=== PATIENT | female | born 1950 | race Caucasian/White ===

== ENCOUNTER → 2016-06-29 | Outpatient (CLI) | payer MEDICARE, OTHER ==
[~2016-06-29] MED LIST: FURO40TA4 PO; GABA100C; GABA250S2 PO; LISI10TA2; MORP60CA18 PO; [UNRECOGNIZED DRUG - CODE]; [UNRECOGNIZED DRUG - CODE]; [UNRECOGNIZED DRUG - CODE]; [UNRECOGNIZED DRUG - CODE]
[2016-06-29 09:10] LABS: ADD SCAN DIFF NO
[2016-06-29 09:20] LABS: BASOPHIL # 0.1 10^3/ul (0.0-0.1); BASOPHILS % 0.9 % (0.0-2.0); EOSINOPHILS # 0.3 10^3/ul (0.0-0.5); EOSINOPHILS % 4.2 % (0.0-7.0); HEMATOCRIT 46.2 % (37.0-47.0); HEMOGLOBIN 14.9 g/dl (12.0-16.0); LYMPHOCYTES # 2.3 10^3/ul (0.8-2.9); LYMPHOCYTES % 34.5 % (15.0-51.0); MEAN CORPUSCULAR HEMOGLOBIN 29.6 pg (29.0-33.0); MEAN CORPUSCULAR HGB CONC 32.3 g/dl (32.0-37.0); MEAN CORPUSCULAR VOLUME 91.7 fl (82.0-101.0); MEAN PLATELET VOLUME 10.6 fl (7.4-10.4); MONOCYTE # 0.5 10^3/ul (0.3-0.9); MONOCYTES % 7.5 % (0.0-11.0); NEUTROPHIL # 3.5 10^3/ul (1.6-7.5); NEUTROPHILS % 52.4 % (39.0-77.0); PLATELET COUNT 269 10^3/UL (140-415); RED BLOOD COUNT 5.04 10^6/ul (4.20-5.40); RED CELL DISTRIBUTION WIDTH 14.6 % (11.5-14.5); WHITE BLOOD COUNT 6.6 10^3/ul (4.8-10.8)
[2016-06-29 09:25] LABS: POTASSIUM 4.2 mmol/L (3.5-5.1)
[2016-06-29 09:27] LABS: CREATININE 0.61 mg/dl (0.44-1.00)
[2016-06-29 09:28] LABS: CALCIUM 9.3 mg/dl (8.4-10.2)
[2016-06-29 09:34] LABS: INR 0.98
[2016-06-29 09:35] LABS: PARTIAL THROMBOPLASTIN TIME 28.1 Sec (25.0-35.0)
== END | disposition home or self-care (01) ==
LOC: LAB 08:42
PROVIDERS: ATTEND Internal Medicine
DX: D64.9 Anemia, unspecified (principal); D68.9 Coagulation defect, unspecified; J44.9 Chronic obstructive pulmonary disease, unspecified
CPT/HCPCS: 80048; 85025; 85610; 85730

== ENCOUNTER 2018-03-13 06:01 | Inpatient (IN) | END 2018-03-14 13:20 | disposition home or self-care (01) | DRG 269 ==

== ENCOUNTER → 2018-10-06 | Outpatient (CLI) | payer MEDICARE, OTHER ==
[~2018-10-06] MED LIST changes: +AMLO-147 PO; +GABA-528 PO; -GABA100C; -GABA250S2 PO; +HYDR2TAB36 PO; -LISI10TA2; +LOSA50TA14 PO; -MORP60CA18 PO; +OXYC5CAP17 PO; +PARO10TA57 PO; +UMEC1DIS INHALATION; +VARE1TAB20 PO; +ZOLP10TA5 PO; -[UNRECOGNIZED DRUG - CODE]; -[UNRECOGNIZED DRUG - CODE]; -[UNRECOGNIZED DRUG - CODE]; -[UNRECOGNIZED DRUG - CODE]
== END | disposition home or self-care (01) ==
LOC: EKG 14:48
PROVIDERS: ATTEND Internal Medicine
DX: R07.9 Chest pain, unspecified (principal)
CPT/HCPCS: 93005

== ENCOUNTER → 2018-10-12 | Outpatient (CLI) | payer MEDICARE, OTHER | END | disposition home or self-care (01) | LOC: C/S 10:32 | PROVIDERS: ATTEND Internal Medicine | DX: R51 Headache (principal); M54.2 Cervicalgia | CPT/HCPCS: 70450; 70490 ==